=== PATIENT | male | born 1950 | race Caucasian/White ===

== ENCOUNTER 2022-07-11 14:42 | Outpatient (CLI) | payer OTHER, MEDICAID ==
[2022-07-11 16:39] LABS: #Eosinphils 0.1 10x3/uL (0.0-0.5); #Monocytes 0.7 10x3/uL (0.0-1.1); #Neutrophils 3.5 10x3/uL (1.5-8.4); %Basophils 0.7 % (0.0-2.0); %Eosinophils 1.8 % (0.0-6.0); %Lymphocytes 28.5 % (18.0-47.0); %Monocytes 11.4 % (0.0-10.0); %Neutrophils 57.3 % (40.0-75.0); Hemoglobin 14.9 g/dL (13.5-17.5); Mean Corpuscular HGB CONC 34.1 g/dL (32.0-36.0); Mean Corpuscular Hemoglobin 32.5 pg (27.0-33.0); Mean Corpuscular Volume 95.2 fl (81.2-95.1); Mean Platelet Volume 10.8 fl (7.4-10.4); Platelet Count 155 10x3/uL (150-450); RBC Distribution Width 14.4 % (11.5-14.5); Red Blood Cell (RBC) Count 4.59 10x6/uL (4.32-5.72); White Blood Cell (WBC) Count 6.1 10x3/uL (3.5-10.5)
[2022-07-11 16:51] LABS: Anion Gap 16 mmol/L (10-20); BUN (Urea Nitrogen) 17 mg/dL (8.4-25.7); Calc. Creatinine Clearance 0 mL/min (70-130); Calcium 9.9 mg/dL (7.8-10.44); Carbon Dioxide 24 mmol/L (23-31); Chloride 105 mmol/L (98-107); Estimated GFR 80; Glucose 119 mg/dL (83-110); Sodium 141 mmol/L (136-145)
== END 2022-07-11 14:43 | disposition home or self-care (01) ==
LOC: LABBT 14:42
PROVIDERS: ATTEND Orthopaedic Surgery Hand Surgery
DX: Z01.818 Encounter for other preprocedural examination (principal); M72.0 Palmar fascial fibromatosis [Dupuytren]; M65.332 Trigger finger, left middle finger; M65.342 Trigger finger, left ring finger
CPT/HCPCS: 80048; 85025; 93005; 93010

== ENCOUNTER 2022-07-15 06:48 | Day surgery (SDC) | payer OTHER, MEDICAID ==
[2022-07-14 13:48] VITALS: BMI 27.5
[2022-07-15] MEDS ORDERED: Bupivacaine PF 0.5% 30 ML VIAL ONE (07:34)
[2022-07-15] MEDS ORDERED: Betamet Acet/Betamet Na Ph 30 MG/5 ML VIAL ONE (07:34)
[2022-07-15] MEDS ORDERED: Bacitracin Zinc Ointment 30 gm TUBE ONE (07:34)
[2022-07-15] MEDS ORDERED: Neomycin-Polymyxin 1 ML AMP ONE (07:34)
[2022-07-15] MEDS ORDERED: Fentanyl 250 MCG/5 ML VIAL ONE (08:10)
[2022-07-15] MEDS ORDERED: Midazolam HCl 2 mg/2 ml Vial ONE (08:11)
[2022-07-15] MEDS ORDERED: Sodium Chloride 0.9% 100 ML ONE (08:16)
[2022-07-15] MEDS ORDERED: CEFAZOLIN 2 GM VIAL ONE (08:16)
[2022-07-15] MEDS ORDERED: Lidocaine 1% PF 5 ML VIAL ONE (08:25)
[2022-07-15] MEDS ORDERED: PROPOFOL 200 MG/20 ML VIAL ONE (08:25)
[2022-07-15] MEDS ORDERED: Phenylephrine 10 MG/ML VIAL ONE (08:25)
[2022-07-15] MEDS ORDERED: Ondansetron PF 4 MG/2 ML Vial ONE (08:25)
[2022-07-15] MEDS ORDERED: ePHEDrine 50 MG/ML VIAL ONE (08:25)
[2022-07-15] MEDS ORDERED: Dexamethasone 20 MG/5 ML VIAL ONE (08:25)
[2022-07-15] MEDS ORDERED: Ketorolac Tromethamine 30 MG/ML VIAL ONE (09:29)
== END 2022-07-15 10:45 | disposition home or self-care (01) ==
LOC: SDC 06:48
PROVIDERS: ATTEND Orthopaedic Surgery Hand Surgery
PROC: 0JBK0ZZ Excision of Left Hand Subcutaneous Tissue and Fascia, Open Approach (ICD-10-PCS; principal; 2022-07-15)
PROC: 0JNK0ZZ Release Left Hand Subcutaneous Tissue and Fascia, Open Approach (ICD-10-PCS; 2022-07-15)
PROC: 0LN80ZZ Release Left Hand Tendon, Open Approach (ICD-10-PCS; 2022-07-15)
DX: M72.0 Palmar fascial fibromatosis [Dupuytren] (principal); M65.342 Trigger finger, left ring finger; M65.332 Trigger finger, left middle finger; I10 Essential (primary) hypertension; E78.5 Hyperlipidemia, unspecified; E03.9 Hypothyroidism, unspecified; E11.9 Type 2 diabetes mellitus without complications; Z79.84 Long term (current) use of oral hypoglycemic drugs; Z79.890 Hormone replacement therapy; Z79.899 Other long term (current) drug therapy
CPT/HCPCS: 88304; J0702; J1100; J1885; J2250; J2370; J2405; J2704; J3010; J3490; S0020